=== PATIENT | female | born 1970 | race American Indian/Alaskan Native ===

== ENCOUNTER 2017-11-08 12:34 | Emergency (ER) | payer OTHER ==
[2017-11-08] MEDS ORDERED: PERCOCET 5/325 PO ONE (12:53)
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
[2017-11-08] MEDS ORDERED: TORADOL IM ONE (14:34)
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
[2017-11-08] MEDS ORDERED: MORPHINE IV ONE (15:20)
[2017-11-08] MEDS ORDERED: NORMODYNE IV ONE (15:20)
[2017-11-08] MEDS ORDERED: TORADOL ONE ×2 (15:40→16:42)
[2017-11-08] MEDS ORDERED: DILAUDID ONE (16:44)
[2017-11-08] MEDS ORDERED: DILAUDID IV ONE (16:47)
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
[2017-11-08 19:07] VITALS: BP 144/78
== END 2017-11-08 19:22 | disposition home or self-care (01) ==
LOC: ED 12:34
DX: M25.561 Pain in right knee (principal); M54.2 Cervicalgia; M54.9 Dorsalgia, unspecified; I10 Essential (primary) hypertension; Z90.710 Acquired absence of both cervix and uterus
CPT/HCPCS: 70450; 71046; 72070; 72100; 72125; 73060; 73562; 93005; 93010; 96372; 96374; 96375; 99285; J1170; J1885; J2270